=== PATIENT | male | born 1990 | race Caucasian/White ===

== ENCOUNTER 2017-10-22 00:14 | Emergency (ER) | payer MEDICAID ==
[~2017-10-22] VITALS: Ht 165.1 cm; Wt 85.5 kg
[2017-10-22 02:03] VITALS: BP 133/70
[2017-10-22] MEDS ORDERED: ARIP10TA15 PO (02:06)
[2017-10-22] MEDS ORDERED: VENL-190 (02:06)
[2017-10-22] MEDS ORDERED: TETanus/Pertussis (Acell)/Diphther VAC/PF (Tdap-Adult) 0.5ml syringe IM ONE (02:10)
[2017-10-22] MEDS ORDERED: bacitracin 15gm ointment TP ONE (02:10)
== END 2017-10-22 02:34 | disposition home or self-care (01) ==
LOC: ER 00:15
DX: S61.213A Laceration without foreign body of left middle finger without damage to nail, initial encounter (principal); F41.9 Anxiety disorder, unspecified; Z79.899 Other long term (current) drug therapy; W26.9XXA Contact with unspecified sharp object(s), initial encounter; Y93.G1 Activity, food preparation and clean up; Y92.89 Other specified places as the place of occurrence of the external cause; Y99.8 Other external cause status
CPT/HCPCS: 90471; 90715; 99283

== ENCOUNTER 2017-12-06 20:48 | Emergency (ER) | payer MEDICAID ==
[~2017-12-06] VITALS: Ht 165.1 cm; Wt 87.7 kg
[~2017-12-06 20:48] MED LIST: ARIP10TA15 PO; VENL-190
[2017-12-06 21:59] LABS: BASOPHILS # (AUTO) 0.1 X10'3 (0-0.2); BASOPHILS % (AUTO) 0.8 % (0-1); EOSINOPHILS # (AUTO) 0.1 X10'3 (0-0.9); EOSINOPHILS % (AUTO) 1.5 % (0-6); HEMATOCRIT 42.3 % (42.0-52.0); HEMOGLOBIN 14.8 g/dl (14.0-17.9); LYMPHOCYTES # (AUTO) 2.9 X10'3 (1.1-4.8); MEAN CORPUSCULAR HEMOGLOBIN 31.4 PG (27.0-31.0); MEAN CORPUSCULAR VOLUME 89.8 FL (78-98); MEAN PLATELET VOLUME 9.3 FL (7.4-10.4); MONOCYTES # (AUTO) 0.6 X10'3 (0-0.9); MONOCYTES % (AUTO) 8.4 % (2-12); NEUTROPHILS # (AUTO) 3.6 X10'3 (1.8-7.7); NEUTROPHILS % (AUTO) 49.3 % (42-75); PLATELET COUNT 193 X10'3 (140-440); RED BLOOD COUNT 4.71 X10'6 (4.70-6.10); RED CELL DISTRIBUTION WIDTH 13.5 % (11.5-14.5); WHITE BLOOD COUNT 7.2 X10'3 (4.5-11.0)
[2017-12-06 22:10] LABS: URINE AMPHETAMINE SCREEN NEGATIVE (Neg); URINE BARBITUATE SCREEN NEGATIVE (Neg); URINE BENZODIAZEPINES SCREEN NEGATIVE (Neg); URINE CANNABINOID SCREEN NEGATIVE (Neg); URINE COCAINE SCREEN NEGATIVE (Neg); URINE METHADONE SCREEN NEGATIVE (Neg); URINE OPIATE SCREEN NEGATIVE (Neg); URINE PHENCYCLIDINE SCREEN NEGATIVE (Neg)
[2017-12-06] MEDS ORDERED: RISP0.5T3 PO (22:11)
[2017-12-06] MEDS ORDERED: VENL37.589 PO (22:11)
[2017-12-06] MEDS ORDERED: FLUO10CA30 PO (22:11)
[2017-12-06 22:18] LABS: ALANINE AMINOTRANSFERASE 95 U/L (12-78); ALBUMIN 3.7 G/DL (3.4-5.0); ALBUMIN/GLOBULIN RATIO 1.1 (1.1-1.5); ALKALINE PHOSPHATASE 72 IU/L (46-116); BILIRUBIN,TOTAL 0.2 MG/DL (0.1-1.0); BLOOD UREA NITROGEN 15 MG/DL (7-18); BUN/CREATININE RATIO 12.8 (5.4-32.0); CALCIUM 8.3 MG/DL (8.5-10.1); CHLORIDE 101 MMOL/L (99-107); CREATININE 1.17 MG/DL (0.60-1.10); ETHANOL < 0.010 GM/DL (0.0-0.010); eGFR 75 ML/MIN
[2017-12-06 22:50] LABS: ANION GAP 12 (8-16); ASPARTATE AMINO TRANSFERASE 41 U/L (10-37); GLUCOSE 179 MG/DL (70-104); POTASSIUM 3.8 MMOL/L (3.5-5.1); SODIUM 138 MMOL/L (135-145)
[2017-12-06 22:54] LABS: ACETAMINOPHEN < 2.0 UG/ML (10-30)
[2017-12-07] MEDS: risperiDONE 0.5mg tablet PO SCH ×2 (08:12→20:22)
[2017-12-07] MEDS: venlafaxine XR 37.5mg cap (Q24H) PO SCH (08:12)
[2017-12-07] MEDS: FLUoxetine 10mg capsule PO SCH (08:12)
[2017-12-07 14:46] LABS: CLARITY,URINE CLEAR (Clear); COLOR,URINE YELLOW (Yellow); GLUCOSE, URINE NEGATIVE (Neg); KETONES,URINE NEGATIVE (Neg); LEUKOCYTE ESTERASE ,URINE NEGATIVE (Neg); NITRITES, URINE NEGATIVE (Neg); OCCULT BLOOD,URINE NEGATIVE (Neg); PH,URINE 5.5 (4.8-8.0); PROTEIN,URINE NEGATIVE (Neg); UA COLLECTION TYPE CLN CATCH MIDSTREAM; UROBILINOGEN,URINE 0.2 E.U/dL (0.2-1.0)
[2017-12-08] MEDS: risperiDONE 0.5mg tablet PO SCH ×2 (08:07→20:17)
[2017-12-08] MEDS: FLUoxetine 10mg capsule PO SCH (08:07)
[2017-12-08] MEDS: venlafaxine XR 37.5mg cap (Q24H) PO SCH (08:07)
[2017-12-08] MEDS ORDERED: LORazepam 1 MG tablet PO ONE (16:15)
[2017-12-09 05:30] VITALS: BP 124/78
[2017-12-09] MEDS: risperiDONE 0.5mg tablet PO SCH (09:13)
[2017-12-09] MEDS: FLUoxetine 10mg capsule PO SCH (09:13)
[2017-12-09] MEDS: venlafaxine XR 37.5mg cap (Q24H) PO SCH (09:13)
== END 2017-12-09 13:57 ==
LOC: ER 20:49
DX: R45.851 Suicidal ideations (principal); F41.9 Anxiety disorder, unspecified; I10 Essential (primary) hypertension; Z79.899 Other long term (current) drug therapy
CPT/HCPCS: 36415; 80053; 80305; 80320; 80329; 81003; 84443; 85025; 99285